=== PATIENT | male | born 2000 | race Caucasian/White ===

== ENCOUNTER 2018-01-26 07:38 | Day surgery (SDC) | payer OTHER ==
[~2018-01-26 07:38] MED LIST: LIDOCAINE 2% INJ 100 MG/5 ML SDV (FOR ANES.) As Ordered; PROPOFOL 200 MG/20 ML VIAL As Ordered
[2018-01-26] MEDS: NS 1,000 ML IV (08:07)
[2018-01-26] MEDS ORDERED: PROPOFOL 200 MG/20 ML VIAL As Ordered (09:44)
== END 2018-01-26 10:31 | disposition home or self-care (01) ==
LOC: M OPP 07:38
DX: K92.1 Melena (principal); R19.4 Change in bowel habit; K63.3 Ulcer of intestine; K59.00 Constipation, unspecified; R19.7 Diarrhea, unspecified; J45.909 Unspecified asthma, uncomplicated; Z88.0 Allergy status to penicillin; Z79.899 Other long term (current) drug therapy
CPT/HCPCS: 45380

== ENCOUNTER → 2018-12-14 | Outpatient (CLI) | payer OTHER ==
[~2018-12-14] MED LIST changes: -LIDOCAINE 2% INJ 100 MG/5 ML SDV (FOR ANES.) As Ordered; -PROPOFOL 200 MG/20 ML VIAL As Ordered; +VENTAER INH
--- NOTE | 2018-12-14 15:17 | REP ---
Clinical: Dyspnea . Comparison: 03/08/2016 . Technique: PA and lateral. Findings: The mediastinum and cardiac silhouette are normal. The lung banda are clear and without acute consolidation, effusion, or pneumothorax. The skeletal structures are intact and normal. Impression: 1. No acute cardiopulmonary process. Electronically Signed by Javier Serrano MD 12/14/2018 03:08 P
== END ==
LOC: M SMT 14:30
PROVIDERS: ATTEND Nurse Practitioner Family
DX: R06.00 Dyspnea, unspecified (principal)